=== PATIENT | female | born 2000 | race Caucasian/White ===

== ENCOUNTER 2019-08-14 12:11 | Emergency (ER) | payer BC ==
[2019-08-14 13:48] VITALS: BP 104/58
--- NOTE | 2019-08-14 14:20 | UC ---
Throat Pain/Nasal Román HPI - HPI Summary HPI Summary: 18-year-old female presents with complaints of 3 days of general malaise, fatigue, sore throat, and occasional productive cough. Associated with tender lymph nodes. Complains of feeling "hot and cold" but no measured fever. Reports history of mono and states that she was treated about a month ago for strep throat. Denies ear pain, nasal congestion, dysphagia, chest pain, shortness of breath, abdominal pain, nausea, or vomiting. - History of Current Complaint Chief Complaint: UCGeneralIllness Stated Complaint: SORE THROAT COUGH CONGESTION FEVER Time Seen by Provider: 08/14/19 13:49 Hx Last Menstrual Period: 07/27/19 Pain Intensity: 5 - Allergies/Home Medications Allergies/Adverse Reactions: Allergies Allergy/AdvReac Type Severity Reaction Status Date / Time cefdinir [From Omnicef] Allergy Rash Verified 08/14/19 13:38 Home Medications: Home Medications Ibuprofen TAB* [Advil TAB*] 200 mg PO BID PRN 08/14/19 [History Confirmed ] PMH/Surg Hx/FS Hx/Imm Hx Previously Healthy: Yes - Denies significant PMH - Surgical History Surgical History: None - Family History Known Family History: Positive: Non-Contributory - Social History Occupation: Student Lives: Dormitory/Roommates Alcohol Use: None Substance Use Type: None Smoking Status (MU): Never Smoked Tobacco Review of Systems All Other Systems Reviewed And Are Negative: Yes Constitutional: Positive: Chills. Negative: Fever Skin: Negative: Rash Eyes: Negative: Drainage, Eye Redness ENT: Positive: Sore Throat. Negative: Ear Ache, Nasal Discharge, Sinus Congestion, Sinus Pain/Tenderness Respiratory: Positive: Cough. Negative: Shortness Of Breath Cardiovascular: Negative: Palpitations, Chest Pain Gastrointestinal: Negative: Abdominal Pain, Vomiting, Nausea Genitourinary: Positive: Negative Musculoskeletal: Positive: Negative Neurological: Positive: Negative Is Patient Immunocompromised?: No Physical Exam - Summary Physical Exam Summary: GENERAL APPEARANCE: Well developed, well nourished, alert and cooperative, and appears to be in no acute distress. EYES: Conjunctiva clear. No drainage. EARS: External auditory canals and tympanic membranes clear, hearing grossly intact. NOSE: No nasal discharge. THROAT: Pharyngeal erythema. 3+ tonsils with exudate. Uvula midline. NECK: Neck supple, non-tender without lymphadenopathy. CARDIAC: Normal S1 and S2. No S3, S4 or murmurs. Rhythm is regular. There is no peripheral edema, cyanosis or pallor. Extremities are warm and well perfused. Capillary refill is less than 2 seconds. Peripheral pulses intact. LUNGS: Clear to auscultation without rales, rhonchi, wheezing or diminished breath sounds. ABDOMEN: Positive bowel sounds. Soft, nondistended, nontender. No guarding or rebound. No masses or hepatosplenomegally. MUSKULOSKELETAL: ROM intact to all extremities. No joint erythema or tenderness. Normal muscular development. Normal gait. SKIN: Skin normal color, texture and turgor with no lesions or eruptions. Triage Information Reviewed: Yes Vital Signs: Initial Vital Signs Temp 99.3 F 08/14/19 13:39 Pulse 107 08/14/19 13:39 Resp 16 08/14/19 13:39 BP 104/58 08/14/19 13:39 Pulse Ox 99 08/14/19 13:39 Vital Signs Reviewed: Yes Throat Pain/Nasal Course/Dx - Course Course Of Treatment: 18-year-old female presents with complaints of 3 days of general malaise, fatigue, sore throat, and occasional productive cough. Associated with tender lymph nodes. Complains of feeling "hot and cold" but no measured fever. Reports history of mono and states that she was treated about a month ago for strep throat. Denies ear pain, nasal congestion, dysphagia, chest pain, shortness of breath, abdominal pain, nausea, or vomiting. Afebrile. Mildly tachycardic otherwise vital signs stable. Patient had pharyngeal erythema, 3+ tonsils with exudate, no cervical lymphadenopathy, and otherwise unremarkable exam. Rapid strep test was positive. Reviewed results with the patient. Will treat for strep pharyngitis with amoxicillin 500 mg twice a day 10 days as well as recommend symptomatic treatment. She is to return here or follow up with her primary care provider in 3-5 days if symptoms are not improving. Anticipatory guidance and warning symptoms were reviewed with the patient. Verbalizes understanding and agrees with plan of care. - Differential Dx/Diagnosis Provider Diagnosis: Strep pharyngitis Discharge ED - Sign-Out/Discharge Documenting (check all that apply): Patient Departure All imaging exams completed and their final reports reviewed: No Studies - Discharge Plan Condition: Stable Disposition: HOME Prescriptions: Amoxicillin PO (*) [Amoxicillin 500 MG CAP*] 500 mg PO Q12H #20 cap Patient Education Materials: Strep Throat (DC) Referrals: No Primary Care Phys,NOPCP [Primary Care Provider] - Additional Instructions: Your rapid strep test in the clinic today was positive. We will start you on an antibiotic to treat the infection. Start Amoxicillin 500 mg 1 cap twice daily for 10 days. Take with food to avoid upset stomach. Be sure to complete entire course even if feeling better. After you have been on antibiotics for 3 days, throw out your toothbrush and replace with a new one to prevent reinfection. Drink plenty of fluids to avoid dehydration especially if you are running any fever. Use salt water gargles several times a day. Take over the counter acetaminophen (Tylenol) or ibuprofen (Advil, Motrin) according to directions as needed for pain or fever. You may also use Chloraseptic spray or Cepacol lonzenges according to directions which contain a numbing medication and can provide some temporary relief from your sore throat. Return here or follow up with your primary care provider in 3-5 days if symptoms do not improve. Seek immediate medical attention in the emergency room if you have fever greater than 100.5 F despite taking acetaminophen or ibuprofen, are unable to swallow or develop drooling, are unable to open your mouth fully, are unable to eat or drink, have pain that is not relieved with over the counter pain medication, have any difficulty breathing, or any worsening of symptoms. - Billing Disposition and Condition Condition: STABLE Disposition: Home
== END 2019-08-14 14:36 | disposition home or self-care (01) ==
LOC: UCCORT 12:11
DX: J02.0 Streptococcal pharyngitis (principal); R53.83 Other fatigue; R05 Cough; Z88.1 Allergy status to other antibiotic agents
CPT/HCPCS: 87651; 99202; G0463